=== PATIENT | female | born 1945 | race Caucasian/White ===

== ENCOUNTER 2017-08-09 09:46 | Inpatient (IN) ==
[2017-08-09] MEDS ORDERED: Dicyclomine 20 MG/2 ML AMPUL IM ONE (10:14)
[2017-08-09] MEDS ORDERED: 0.9 % Sodium Chloride 1,000 ML IVC ONE (10:14)
[2017-08-09] MEDS ORDERED: Ondansetron 4 MG/2 ML VIAL IVP ONE (10:14)
[2017-08-09] MEDS ORDERED: Isovue-370 500 ML INFUS..BTL IV ONE (10:15)
--- NOTE | 2017-08-09 10:21 | Emergency Department Note ---
Disposition Clinical Impression: Pancytopenia UTI (urinary tract infection) Qualifiers: Urinary tract infection type: site unspecified Hematuria presence: without hematuria Qualified Code(s): N39.0 - Urinary tract infection, site not specified Disposition: Home, Self-Care Condition: Good Referrals: Paris Johnson VOCATIONAL REHABILITATION TECHNICIAN [Primary Care Provider] - Forms: ED Satisfaction Letter, Work/School Release Time of Disposition: 13:34 Abdominal Pain HPI - General Chief Complaint: ED Abdominal Pain Stated Complaint: N/V/D, abd pain Time Seen by Provider: 08/09/17 09:58 Source: patient Limitations: no limitations Nursing Notes Reviewed: Yes Vital Signs Reviewed: Yes - History of Present Illness HPI Narrative: This is a 71 year-old male with history of HTN, HLD, DM, CHF, pacer/defib, and metastatic cervical cancer, who presents with abdominal pain, vomiting, and diarrhea. Symptoms began last Monday, the day after her last chemotherapy treatment. She reports diffuse, crampy abdominal pain, several episodes of nonbloody/nonbilious emesis/dry heaves, and watery diarrhea. She has had symptoms like this after previous chemo treatments but not this severe or long- lasting. Symptoms are worse when she attempts to eat or drink. She reports chills but no measured fevers. She denies any associated chest pain, dyspnea, or urinary symptoms. She says that she is scheduled for CT of the abdomen and pelvis tomorrow, to gauge response to chemotherapy. Pt Subjective Complaint: abdominal pain Onset (ago): day(s) (5) Consistency: intermittent Location: diffuse Pain Severity: moderate Pain Scale: 6 Quality: cramping Radiation: none Migration to: no migration Improves with: nothing Worsens with: eating, other (drinking) Context: history of similar episodes (similar to previous chemo effects, but more severe) Associated symptoms: Reports: nausea, vomiting, diarrhea, chills. Denies: fever , constipation, dysuria, hematemesis, hematochezia, melena Treatments prior to arrival: other (Zofran) - Related Data Home Medications Medication Instructions Recorded Confirmed Aspirin 81 mg PO DAILY 10/27/14 08/03/17 Furosemide [Lasix] 40 mg PO DAILY 10/27/14 08/03/17 Potassium Chloride 10 meq PO BIDWM 10/27/14 08/03/17 [place] Oil/[place]-3 Fatty Acids 1,000 mg PO DAILY 10/27/14 08/03/17 [Fish Oil 500 mg Softgel] Simvastatin [Zocor] 10 mg PO HS 10/12/15 08/03/17 Metoprolol XL (24 HR) Succ [Toprol 100 mg PO DAILY 06/27/16 08/03/17 XL] Losartan [Cozaar] 25 mg PO BID 04/24/17 08/03/17 Ibuprofen [Motrin] 400 mg PO Q4HR PRN 06/28/17 08/03/17 Previous Rx's Medication Instructions Recorded Incontinence Pad,Liner,Disp 1 each MC BID #90 each 01/09/17 [Bladder Control Pad] Gabapentin [Neurontin] 100 mg PO HS #30 capsule 02/28/17 Omeprazole 20 mg PO DAILY #90 tablet. 02/28/17 Loratadine [Claritin] 10 mg PO DAILY #30 capsule 04/10/17 Promethazine [Phenergan] 25 mg PO Q6HR PRN #30 tablet 06/01/17 Magic Mouthwash [Magic Mouthwash 10 ml PO QID PRN #240 ml 06/22/17 BLM] Sertraline [Zoloft] 50 mg PO DAILY #30 tablet 06/28/17 Dicyclomine [Bentyl] 10 mg PO TID PRN #30 capsule 08/03/17 Allergies Allergy/AdvReac Type Severity Reaction Status Date / Time Sulfa (Sulfonamide Allergy Swelling Verified 08/09/17 09:48 Antibiotics) of Lip/Tongue/Throat All systems ED: reviewed and negative except as stated. Constitutional: Reports: chills, weakness (generalized). Denies: fever Cardiovascular: Denies: chest pain Respiratory: Denies: cough, dyspnea Gastrointestinal: Reports: as per HPI, abdominal pain, nausea, vomiting, diarrhea. Denies: constipation, hematemesis, melena, hematochezia Genitourinary: Denies: urgency Musculoskeletal: Reports: myalgia Neurological: Reports: headache. Denies: weakness, numbness Abdominal Pain PMH - Past Medical History Medical history: Reports: arthritis, asthma, cancer, cardiomyopathy, CHF, COPD, diabetes, GERD, hyperlipidemia, hypertension, other Female Surgical History: Reports: cholecystectomy, hysterectomy JET PILOT history: Reports: no JET PILOT history Psychiatric history: Reports: anxiety, depression - Social History Smoking status: Current every day smoker Alcohol use: Reports: none Drug use: Reports: none, other Physical Exam - General Limitations: no limitations General appearance: alert - Head Head exam: atraumatic, normocephalic - Eye Eye exam: Present: normal appearance. Absent: scleral icterus - ENT ENT exam: normal exam, mucous membranes dry - Neck Neck exam: Present: normal inspection. Absent: meningismus - Respiratory Respiratory exam: Present: normal lung sounds bilaterally. Absent: respiratory distress, wheezes - Cardiovascular Cardiovascular exam: Present: regular rate, normal rhythm, normal heart sounds - Abdominal Exam Abdominal exam: Present: soft, Non-Tender, normal bowel sounds. Absent: distention, guarding, rebound, rigidity, Fortune's sign, tenderness at McBurney' s Point - Extremities Exam Extremities exam: Present: normal inspection. Absent: calf tenderness - Neurological Exam Neurological exam: Present: alert, oriented X3. Absent: motor sensory deficit - Psychiatric Psychiatric exam: Present: normal affect, normal mood - Skin Skin exam: Present: warm, dry, intact Course - Reevaluation(s) Reevaluation #1: Discussed test results and plans with patient/family. Time: 12:55 - Consultations Consultation #1: Paged oncology Time: 12:55 Consultation #2: Reviewed case with Lina Gilliam from Oncology. She is in agreement with admitting patient, and Oncology will consult. Time: 13:33 Consultation #3: Reviewed case with Dr. Sinha, and patient accepted for admission. Time: 13:47 Vital Signs Temperature 99.1 F 08/09/17 09:49 Pulse Rate 89 08/09/17 09:49 Respiratory Rate 20 08/09/17 09:49 Blood Pressure 148/75 08/09/17 09:49 O2 Sat by Pulse Oximetry 96 08/09/17 09:49 Temperature 99.1 F 08/09/17 10:57 Pulse Rate 89 08/09/17 10:57 Respiratory Rate 20 08/09/17 10:57 Blood Pressure 148/75 08/09/17 10:57 O2 Sat by Pulse Oximetry 96 08/09/17 10:57 Oxygen Delivery Oxygen Delivery Room Air Abdominal Pain - Lab Data Lab results reviewed: Yes I reviewed the patient's lab results. Result diagrams: 08/09/17 10:15 08/09/17 10:15 Lab Results 08/09/17 08/09/17 08/09/17 Range/Units 10:15 10:15 10:44 WBC 0.9 L* D (4.3-11.1) K/mcL RBC 2.46 L (3.82-4.97) M/mcL Hgb 8.6 L (11.5-15.4) g/dL Hct 26.3 L (35.3-44.9) % MCV 106.9 H (83.0-100.0) fL MCH 35.0 H (28.0-33.3) pg MCHC 32.7 (31.6-35.5) g/dL RDW 18.4 H (11.5-14.5) % Plt Count 39 L D (140-400) K/mcL MPV TNP Immature Gran % 0.0 (0-4) % Seg Neutrophils % 47.8 % Lymphocytes % 47.8 % Monocytes % 3.3 % Eosinophils % 0.0 % Basophils % 1.1 % Neutrophils # 0.4 L (1.6-8.9) K/mcL Lymphocytes # 0.4 L (0.6-4.6) K/mcL Monocytes # 0.0 (0.0-1.3) K/mcL Eosinophils # 0.0 (0.0-0.6) K/mcL Basophils # 0.0 (0.0-0.2) K/mcL Platelet Estimate Decreased L (Normal) Anisocytosis 1+ A (Not Present) Sodium 138 (136-145) mEq/L Potassium 4.6 (3.5-5.1) mEq/L Chloride 108 H (98-107) mEq/L Carbon Dioxide 23 (23-29) mEq/L BUN 33 H (8-23) mg/dL Creatinine 0.92 (0.60-1.20) mg/dL Est GFR ( Amer) > 60 (> 60) Est GFR (Non-Af Amer) > 60 (> 60) BUN/Creatinine Ratio 36 H (6-26) Glucose 168 H (70-105) mg/dL Calculated Osmolality 297 (280-300) Calcium 8.5 L (8.6-10.3) mg/dL Total Bilirubin 0.8 (0.3-1.0) mg/dL Direct Bilirubin 0.2 (0.0-0.2) mg/dL Indirect Bilirubin 0.6 (0.0-1.2) mg/dL AST 32 (13-39) Units/L ALT 37 (7-52) Units/L Alkaline Phosphatase 64 (34-104) Units/L Serum Total Protein 6.4 (6.4-8.9) g/dL Albumin 3.9 (3.5-5.7) g/dL Globulin 2.5 (2.4-3.5) g/dL Albumin/Globulin Ratio 1.6 (1.1-2.2) Amylase 37 (29-103) Units/L Lipase 5 L (11-82) Units/L Urine Color Yellow (Yellow) Urine Clarity Clear (Clear) Urine pH 5.5 (5.0-8.0) pH Units Ur Specific [place] 1.028 H (1.010-1.025) Urine Protein Negative (Neg-Trace) mg/dL Urine Glucose (UA) Normal (Normal) mg/dL Urine Ketones Negative (Negative) mg/dL Urine Blood Trace H (Negative) Urine Nitrite Positive A (Negative) Urine Bilirubin Negative (Negative) Urine Urobilinogen Normal (Normal) mg/dL Ur Leukocyte Esterase Moderate H (Negative) Urine Microscopic RBC 3-5 H (0-3) per hpf Urine Microscopic WBC 15-30 H (0-3) per hpf Ur Squamous Epith Cells Many H (None-Few) per lpf Urine Bacteria Moderate H (None-Few) per hpf Hyaline Casts None Seen (None-Few) per lpf Ur Culture Indicated? NO. A (NO) - Radiology Data Radiology results reviewed: Yes I reviewed the patient's radiology results. CT/CT abd pelvis w iv and oral IMPRESSION: No acute intra-abdominal or intrapelvic abnormality. The right iliac chain and periportal lymph adenopathy has decreased compared to prior. No new or enlarging lymphadenopathy identified. Persistent mild focal wall thickening of the peritoneal in the left lower quadrant near the iliac chain lymphadenopathy, similar in appearance.
[2017-08-09 11:13] LABS: Basophils % 1.1 %; Neutrophils # 0.4 K/mcL (1.6-8.9); Segmented Neutrophils % 47.8 %
[2017-08-09 11:14] LABS: Hematocrit 26.3 % (35.3-44.9); Hemoglobin 8.6 g/dL (11.5-15.4); Lymphocytes # 0.4 K/mcL (0.6-4.6); Lymphocytes % 47.8 %; Mean Corpuscular HGB Conc 32.7 g/dL (31.6-35.5); Mean Corpuscular Volume 106.9 fL (83.0-100.0); Monocytes % 3.3 %; Red Blood Count 2.46 M/mcL (3.82-4.97); Red Cell Distribution Width 18.4 % (11.5-14.5)
[2017-08-09 11:15] LABS: Bilirubin,Urine Negative (Negative); Blood,Urine Trace (Negative); Clarity,Urine Clear (Clear); Color,Urine Yellow (Yellow); Glucose,Urine (UA) Normal (Normal); Ketones,Urine Negative (Negative); Leukocyte Esterase,Urine Moderate (Negative); Nitrite,Urine Positive (Negative); PH,Urine 5.5 pH Units (5.0-8.0); Protein,Urine Negative (Neg-Trace); Specific Gravity,Urine 1.028 (1.010-1.025); Urobilinogen,Urine Normal (Normal)
[2017-08-09 11:17] LABS: Bacteria,Urine Moderate per hpf (None-Few); Hyaline Casts,Urine None Seen per lpf (None-Few); Squamous Epithelial Cell,Urine Many per lpf (None-Few); WBC,Urine 15-30 per hpf (0-3)
[2017-08-09 11:18] LABS: Platelet Count 39 K/mcL (140-400)
[2017-08-09] MEDS ORDERED: cefTRIAXone 2,000 MG in 0.9 % Sodium Chloride Mini Bag 100 ML IVPB ONE (11:33)
[2017-08-09] MEDS ORDERED: Piperacillin/Tazobactam 3.375 GM in 0.9 % Sodium Chloride Mini Bag 100 ML IVPB ONE (11:33)
[2017-08-09 11:34] LABS: Alanine Aminotransferase 37 Units/L (7-52); Albumin 3.9 g/dL (3.5-5.7); Albumin/Globulin Ratio 1.6 (1.1-2.2); Alkaline Phosphatase 64 Units/L (34-104); Amylase 37 Units/L (29-103); Anisocytosis 1+ (Not Present); Aspartate Amino Transferase 32 Units/L (13-39); BUN/Creatinine Ratio 36 (6-26); Bilirubin,Direct 0.2 mg/dL (0.0-0.2); Bilirubin,Indirect 0.6 mg/dL (0.0-1.2); Bilirubin,Total 0.8 mg/dL (0.3-1.0); Blood Urea Nitrogen 33 mg/dL (8-23); Calcium 8.5 mg/dL (8.6-10.3); Carbon Dioxide 23 mEq/L (23-29); Chloride 108 mEq/L (98-107); Globulin 2.5 g/dL (2.4-3.5); Glucose 168 mg/dL (70-105); Lipase 5 Units/L (11-82); Osmolality,Calculated 297 (280-300); Potassium 4.6 mEq/L (3.5-5.1); Sodium 138 mEq/L (136-145); Total Protein 6.4 g/dL (6.4-8.9); eGFR For African Americans > 60 (> 60); eGFR For Non-African Americans > 60 (> 60)
[2017-08-09 11:35] LABS: Platelet Estimate Decreased (Normal)
[2017-08-09] MEDS ORDERED: *HR* HYDROcodone/Acet 5/325 mg TABLET PO PRN (14:17)
[2017-08-09] MEDS ORDERED: Naloxone 0.4 MG/ML INJ IVP PRN (14:17)
[2017-08-09] MEDS ORDERED: D5% in Water 1,000 ML IVC PRN (14:17)
[2017-08-09] MEDS ORDERED: Acetaminophen 325 MG TABLET PO PRN (14:17)
[2017-08-09] MEDS ORDERED: Dextrose Gel 15 GM/37.5 ML TUBE PO PRN ×2 (14:17)
[2017-08-09] MEDS ORDERED: *HR* OxyCODONE Immed Rel 5 MG TABLET PO PRN (14:17)
[2017-08-09] MEDS ORDERED: *HR* Dextrose 50 % in Water (Syg) 50 ML SYRINGE IVP PRN (14:17)
--- NOTE | 2017-08-09 14:22 | Internal Med History&Physical ---
Date of Encounter: 08/09/17 Time of Encounter: 14:20 Internal Medicine - H&P: HPI Chief complaint: Abdominal pain Admitted From: Emergency Dept History of present illness: Ms. 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 Today, the patient's white blood cell count is 0.9 neutrophil count is 0.4, hemoglobin is close to baseline at 8.6 but platelets have dropped to 39. There is no evidence of bleeding, the UA shows possible UTI, CT scan of the abdomen shows diffuse lymphadenopathy. Oncology was consulted by the ER. The patient's blood pressure is 148/75, she says that she has been having cramps minimal dysuria, chills no fevers, feeling very weak and having abdominal pain after eating. Past Med Surg Social Fam HX - Past Medical History Medical history: arthritis, asthma, cancer (High-grade carcinoma of the fallopian tubes status post chemotherapy, ovarian cancer with gastric metastases ), cardiomyopathy, CHF (Diastolic), COPD (Not oxygen dependent), diabetes (Not insulin-dependent), GERD, hyperlipidemia, hypertension, other (Left bundle branch block, depression, diastolic dysfunction with an ejection fraction of 55% ) Additional medical history: smoker, Ca of the abd, pacemaker/defibrillator Psychiatric history: anxiety, depression - Past Surgical History Surgical History: cholecystectomy, hysterectomy, orthopedic, other, other ( Right salpingo-oophorectomy with omentectomy, surgical aspiration of sigmoid colon nodules, surgical repair of bladder, cholecystectomy, cardiac catheterization in November 2011, AICD), AICD Additional surgical history: marty feet-tumor removed; hemicolectomy - Social History Smoking Status: Current every day smoker Packs per day: Half a pack per day Smokeless Tobacco Status: No Alcohol use: none Drug use: none, other - Additional Family History Additional family history: Brother with diabetes, father and mother with heart disease Internal Medicine - H&P: Meds Aspirin 81 mg PO DAILY 10/27/14 [History] Simvastatin [Zocor] 10 mg PO HS 10/12/15 [History] Metoprolol XL (24 HR) Succ [Toprol XL] 100 mg PO DAILY 06/27/16 [History] Incontinence Pad,Liner,Disp [Bladder Control Pad] 1 each MC BID #90 each [Rx] Gabapentin [Neurontin] 100 mg PO HS #30 capsule 02/28/17 [Rx] Omeprazole 20 mg PO DAILY #90 tablet. 02/28/17 [Rx] Loratadine [Claritin] 10 mg PO DAILY #30 capsule 04/10/17 [Rx] Losartan [Cozaar] 25 mg PO BID 04/24/17 [History] Promethazine [Phenergan] 25 mg PO Q6HR PRN #30 tablet 06/01/17 [Rx] Magic Mouthwash [Magic Mouthwash BLM] 10 ml PO QID PRN #240 ml 06/22/17 [Rx] Ibuprofen [Motrin] 400 mg PO Q4HR PRN 06/28/17 [History] Sertraline [Zoloft] 50 mg PO DAILY #30 tablet 06/28/17 [Rx] Dicyclomine [Bentyl] 10 mg PO TID PRN #30 capsule 08/03/17 [Rx] Furosemide [Lasix] 40 mg PO DAILY 08/09/17 [History] Multivitamin [One Daily Multivitamin] 1 tab PO DAILY 08/09/17 [History] [place]-3/Dha/Epa/Fish Oil [Fish Oil 1,000 mg Softgel] 1,000 mg PO DAILY 08/09/17 [History] Potassium Chloride [Klor-Con 10] 10 meq PO BID 08/09/17 [History] 3 Allergy/AdvReac Type Severity Reaction Status Date / Time Sulfa (Sulfonamide Allergy Swelling Verified 08/09/17 09:48 Antibiotics) of Lip/Tongue/Throat All Systems PM: A 10-system review of systems was performed and is negative for pertinent findings except as documented above in the HPI. Review of systems: No chest pain or shortness of breath, other systems out of the 10 reviewed were negative - Constitutional Vitals: Temp Pulse Resp BP Pulse Ox 99.1 F 89 20 148/75 96 08/09/17 10:57 08/09/17 10:57 08/09/17 10:57 08/09/17 10:57 08/09/17 10:57 General appearance: Present: A&O X 3 - Head Head exam: Present: atraumatic, normocephalic - Eye Eye exam: Present: PERRL, conjuntiva pink, sclera anicteric Pupils: Present: PERRL - Neck Neck exam general surgery: Present: supple, trachea midline. Absent: lymphadenopathy - Respiratory Respiratory exam: Present: CTAB. Absent: accessory muscle use, rales, rhonchi, wheezes - Cardiovascular Cardiovascular exam: Present: RRR, +S1, +S2. Absent: diastolic murmur, gallop, rubs, systolic murmur - GI/Abdominal GI/Abdominal exam: Present: distended, normal bowel sounds, soft, no peritoneal signs. Absent: tenderness - Extremities Exam Extremities exam: Present: warm, radial pulses palpable and symmetrical. Absent : calf tenderness, cyanotic, pedal edema - Neurological Exam Neurological exam: Present: CN II-XII intact, oriented X3, no focal deficits. Absent: pronater drift, facial droop, speech deficit Additional comments: Minimal bruising in the intervertebral spaces of the lumbar area - Skin Skin exam: Present: dry, intact Internal Med - H&P Results - Labs CBC & Chem 7: 08/09/17 10:15 08/09/17 10:15 Labs: Short CBC 08/09/17 Range/Units 10:15 WBC 0.9 L* D (4.3-11.1) K/mcL Hgb 8.6 L (11.5-15.4) g/dL Hct 26.3 L (35.3-44.9) % Plt Count 39 L D (140-400) K/mcL Neutrophils # 0.4 L (1.6-8.9) K/mcL BMP 08/09/17 10:15 Sodium 138 Potassium 4.6 Chloride 108 H Carbon Dioxide 23 BUN 33 H Creatinine 0.92 Glucose 168 H Calcium 8.5 L Liver Function 08/09/17 Range/Units 10:15 Total Bilirubin 0.8 (0.3-1.0) mg/dL Direct Bilirubin 0.2 (0.0-0.2) mg/dL AST 32 (13-39) Units/L ALT 37 (7-52) Units/L Alkaline Phosphatase 64 (34-104) Units/L Albumin 3.9 (3.5-5.7) g/dL Urine 08/09/17 Range/Units 10:44 Urine Color Yellow (Yellow) Urine Clarity Clear (Clear) Urine pH 5.5 (5.0-8.0) pH Units Ur Specific [place] 1.028 H (1.010-1.025) Urine Protein Negative (Neg-Trace) mg/dL Urine Glucose (UA) Normal (Normal) mg/dL - Impressions ITS Impressions Abdomen/Pelvis CT 08/09/17 12:00 IMPRESSION: No acute intra-abdominal or intrapelvic abnormality. The right iliac chain and periportal lymph adenopathy has decreased compared to prior. No new or enlarging lymphadenopathy identified. Persistent mild focal wall thickening of the peritoneal in the left lower quadrant near the iliac chain lymphadenopathy, similar in appearance. D/ / Eloina Rondon MD / Eloina Rondon MD Interpreting Provider: Eloina Rondon MD - Assessment and plan (1) Neutropenic fever Current Visit: Yes Status: Acute Assessment and plan: Neutropenic fever with severe neutropenia, pancytopenia likely related to chemotherapy Neutropenic precautions, neutropenic fever, minimize punctures IV fluids, start cefepime Aspirin due to thrombus cytopenia Order x-ray of the lumbar and thoracic spines due to pain Chest x-ray, blood cultures Oncology consulted by ER Omeprazole for GI prophylaxes and sequential compression devices for DVT prophylaxis, the patient will be admitted as inpatient, expected to stay more than 2 midnights. Full code. Time spent on this admission 40 minutes (2) Carcinoma of right fallopian tube Current Visit: Yes Status: Acute Assessment and plan: Followed by oncology, gastric metastases (3) Tobacco abuse Current Visit: Yes Status: Acute Assessment and plan: Smoking cessation counseling (4) Pancytopenia Current Visit: Yes Status: Acute (5) UTI (urinary tract infection) Current Visit: Yes Status: Acute Assessment and plan: Urine culture ordered, spoke personally to the microbiology laboratory as it was not reflexed to culture Qualifiers: Urinary tract infection type: site unspecified Hematuria presence: without hematuria Qualified Code(s): N39.0 - Urinary tract infection, site not specified (6) Chemotherapy-induced peripheral neuropathy Current Visit: No Status: Acute (7) CHF (congestive heart failure), NYHA class III Current Visit: No Status: Chronic Assessment and plan: No exacerbation Qualifiers: Congestive heart failure type: diastolic Congestive heart failure chronicity: chronic Qualified Code(s): I50.32 - Chronic diastolic (congestive ) heart failure - Time Spent With Patient Total time spent is greater than 50% in coordination of care (as documented) at patient's floor/unit and/or counseling patient:
[2017-08-09] MEDS ORDERED: Cefepime HCl 2,000 MG in Water for inj. (sterile) 20 ML 20 ML IVP SCH (15:00)
[2017-08-09] MEDS: Nicotine 14 MG PATCH.TD24 TD SCH (16:16)
[2017-08-09] MEDS: 0.9 % Sodium Chloride 1,000 ML IVC SCH (16:17)
[2017-08-09] MEDS: Cefepime HCl 2,000 MG in Water for inj. (sterile) 20 ML 20 ML IVP SCH (16:19)
[2017-08-09] MEDS: Insulin LISPRO 300 UNITS/3 ML VIAL SQ SCH (16:26)
[2017-08-09] MEDS: Gabapentin 100 MG CAPSULE PO SCH (20:04)
[2017-08-10] MEDS: Cefepime HCl 2,000 MG in Water for inj. (sterile) 20 ML 20 ML IVP SCH (03:45)
[2017-08-10 05:33] LABS: Immature Granulocytes % 0.7 % (0-4)
[2017-08-10 05:34] LABS: Hematocrit 21.2 % (35.3-44.9); Hemoglobin 6.9 g/dL (11.5-15.4); Lymphocytes % 68.5 %; Mean Corpuscular HGB Conc 32.5 g/dL (31.6-35.5); Mean Corpuscular Hemoglobin 34.7 pg (28.0-33.3); Mean Corpuscular Volume 106.5 fL (83.0-100.0); Mean Platelet Volume 9.7 fL (9.4-12.4); Monocytes # 0.1 K/mcL (0.0-1.3); Monocytes % 3.4 %; Neutrophils # 0.4 K/mcL (1.6-8.9); Nucleated Red Blood Cells 2.7 /100 WBC (0); Red Blood Count 1.99 M/mcL (3.82-4.97); Red Cell Distribution Width 18.4 % (11.5-14.5); Segmented Neutrophils % 27.4 %
[2017-08-10 05:41] LABS: Platelet Count 17 K/mcL (140-400)
[2017-08-10 05:50] LABS: BUN/Creatinine Ratio 28 (6-26); Blood Urea Nitrogen 22 mg/dL (8-23); Calcium 7.3 mg/dL (8.6-10.3); Carbon Dioxide 23 mEq/L (23-29); Chloride 113 mEq/L (98-107); Glucose 157 mg/dL (70-105); Osmolality,Calculated 297 (280-300); Sodium 140 mEq/L (136-145); eGFR For African Americans > 60 (> 60); eGFR For Non-African Americans > 60 (> 60)
[2017-08-10 06:07] LABS: Anisocytosis 1+ (Not Present); Macrocytosis Present (Not Present)
[2017-08-10 06:08] LABS: Platelet Estimate Marked Decrease (Normal)
[2017-08-10] MEDS: 0.9 % Sodium Chloride 1,000 ML IVC SCH ×2 (07:20→21:15)
[2017-08-10] MEDS: Metoprolol XL (24 HR) Succ 50 MG TAB.ER.24H PO SCH (08:57)
[2017-08-10] MEDS: Insulin LISPRO 300 UNITS/3 ML VIAL SQ SCH ×3 (08:58→17:26)
[2017-08-10] MEDS: Nicotine 14 MG PATCH.TD24 TD SCH (08:59)
[2017-08-10] MEDS ORDERED: Isovue-370 500 ML INFUS..BTL IV ONE (16:05)
--- NOTE | 2017-08-10 16:10 | Internal Med Progress Note ---
Date of Encounter: 08/10/17 Time of Encounter: 11:30 - Assessment and plan (1) Neutropenic fever Current Visit: Yes Status: Acute Assessment and plan: Neutropenic fever with severe neutropenia, pancytopenia likely related to chemotherapy Neutropenic precautions, neutropenic fever, minimize punctures IV fluids, start cefepime Aspirin due to thrombus cytopenia Order x-ray of the lumbar and thoracic spines due to pain Chest x-ray, blood cultures Oncology consulted by ER 08/10: Patient is doing well clinically. Urinalysis is suggestive of urinary tract infection although it may also have been contaminated given multiple epithelial cells. There were 15-30 white blood cells in the urine. Urine cultures growing out gram-negative rods. Cultures are negative to date Patient is day #1 IV cefepime. Patient remains hemodynamically stable. We will continue to monitor. ANC today is 405. Pathology will be seeing. (2) Pancytopenia Current Visit: Yes Status: Acute Assessment and plan: She has chemotherapy associated pancytopenia. Family states she has had Neulasta in the past but did not tolerate, and made her sick. Patient's hemoglobin is 6.9. I will offer one unit of packed red blood cells. White count is 17. She is not showing any signs of bleeding. We will need to closely monitor and consider platelet support as well. Further management as per oncology recommendations. (3) CHF (congestive heart failure), NYHA class III Current Visit: No Status: Chronic Assessment and plan: No exacerbation Echocardiogram in January 2016 showed an EF of 55%, essentially a normal study with the exception of some mild ventricular diastolic dysfunction. (4) Chemotherapy-induced peripheral neuropathy Current Visit: No Status: Acute (5) UTI (urinary tract infection) Current Visit: Yes Status: Acute Assessment and plan: Urine culture ordered, spoke personally to the microbiology laboratory as it was not reflexed to culture 08/10: As mentioned above. Qualifiers: Urinary tract infection type: site unspecified Hematuria presence: without hematuria Qualified Code(s): N39.0 - Urinary tract infection, site not specified (6) Carcinoma of right fallopian tube Current Visit: Yes Status: Acute Assessment and plan: Followed by oncology, gastric metastases (7) Tobacco abuse Current Visit: Yes Status: Acute Assessment and plan: Smoking cessation counseling - Time Spent With Patient Total time spent is greater than 50% in coordination of care (as documented) at patient's floor/unit and/or counseling patient: 25 - 35 minutes - Subjective Interval history: Ms. 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 Today, the patient's white blood cell count is 0.9 neutrophil count is 0.4, hemoglobin is close to baseline at 8.6 but platelets have dropped to 39. There is no evidence of bleeding, the UA shows possible UTI, CT scan of the abdomen shows diffuse lymphadenopathy. Oncology was consulted by the ER. The patient's blood pressure is 148/75, she says that she has been having cramps minimal dysuria, chills no fevers, feeling very weak and having abdominal pain after eating. 08/10: Patient states she feels well today. Her last chemotherapy was 7 days ago. This is her second cycle of this regimen. He currently denies any further fever. No abdominal pain. No nausea, vomiting, diarrhea. No chest pain or shortness of breath. No urinary complaints. Cancer Center notified us that she is to have a CT of her chest as well so we took the liberty of ordering this. Patient remains pancytopenic. Hemoglobin is 6.9. A transfusion will be ordered. The count is 17,000. Oncology has been consulted. - Constitutional Vitals: Temp Pulse Resp BP Pulse Ox 98.0 F 71 16 125/71 95 08/10/17 15:28 08/10/17 15:28 08/10/17 15:28 08/10/17 15:28 08/10/17 15:28 General appearance: Present: A&O X 3 - Head Head exam: Present: atraumatic, normocephalic - Eye Eye exam: Present: PERRL, conjuntiva pink, sclera anicteric Pupils: Present: PERRL - Neck Neck exam general surgery: Present: supple, trachea midline. Absent: lymphadenopathy - Respiratory Respiratory exam: Present: CTAB. Absent: accessory muscle use, rales, rhonchi, wheezes - Cardiovascular Cardiovascular exam: Present: RRR, +S1, +S2. Absent: diastolic murmur, gallop, rubs, systolic murmur - GI/Abdominal GI/Abdominal exam: Present: normal bowel sounds, soft, no peritoneal signs. Absent: distended, tenderness - Extremities Exam Extremities exam: Present: warm, radial pulses palpable and symmetrical. Absent : calf tenderness, cyanotic, pedal edema - Neurological Exam Neurological exam: Present: CN II-XII intact, oriented X3, no focal deficits. Absent: pronater drift, facial droop, speech deficit - Skin Skin exam: Present: dry, intact Internal Medicine: Result - Labs CBC & Chem 7: 08/10/17 05:10 08/10/17 05:10 Labs: Short CBC 08/10/17 Range/Units 05:10 WBC 1.5 L D (4.3-11.1) K/mcL Hgb 6.9 L D (11.5-15.4) g/dL Hct 21.2 L (35.3-44.9) % Plt Count 17 L* D (140-400) K/mcL Neutrophils # 0.4 L (1.6-8.9) K/mcL BMP 08/10/17 05:10 Sodium 140 Potassium 4.0 Chloride 113 H Carbon Dioxide 23 BUN 22 Creatinine 0.78 Glucose 157 H Calcium 7.3 L Consult Discharge Plan - Plan Referrals: Paris Johnson CNP [Primary Care Provider] - 08/18/17 9:00 am
--- NOTE | 2017-08-10 17:19 | Oncology Inp Consult Note ---
<Lina Gilliam L - Last Filed: 08/15/17 14:43> Date of Encounter: 08/10/17 Time of Encounter: 14:30 Assessment and Plan (1) Pancytopenia Status: Acute Assessment and plan: Secondary to chemotherapy. Neutropenia with TMAX 99.1 since admission, patient denies temp >100.4 prior to admission. Neutropenic precautions until ANC >500 Treat supportively, transfuse for hgb <7 or platelets <10 (2) UTI (urinary tract infection) Status: Acute Assessment and plan: Urine analysis appeared contaminated however culture grew E. Coli Continue cefepime- culture shows sensitivity Presented with abdominal pain, nausea and vomiting which have since resolved. Patient reports relief with Bentyl- continue supportive medications Discussed use of supportive medications with chemotherapy regimen as outpatient. Qualifiers: Urinary tract infection type: site unspecified Hematuria presence: without hematuria Qualified Code(s): N39.0 - Urinary tract infection, site not specified (3) Carcinoma of right fallopian tube Status: Acute Assessment and plan: Palliative carboplatin, gemcitabine and bevacizumab initiated 06/01/2017. S/P cycle #3 day 8 of chemotherapy on 08/03. Due for restaging scans-CT chest/abdomen/pelvis obtained. CT chest-Bilateral lower lobe juxtapleural consolidation with appearance of scarring/ round atelectasis at. Given these are new findings since prior study, pneumonia cannot be completely excluded. Short-term follow-up CT is recommended to confirm stability. CT abdomen/pelvis-No acute intra-abdominal or intrapelvic abnormality. The right iliac chain and periportal lymph adenopathy has decreased compared to prior. No new or enlarging lymphadenopathy identified. Persistent mild focal wall thickening of the peritoneal in the left lowe quadrant near the iliac chain lymphadenopathy, similar in appearance. Will arrange for follow up with treating oncologist Dr. Weaver following discharge. Please refer to Dr. Barnett's attestation below for additional details - Data of Consult Patient: known to practice within the last 3 years Consult date: 08/10/17 Requesting Physician: Kyra Ramon MD Primary Care Provider: Paris Johnson CNP - Consult Narrative Reason for consult: Right ovarian carcinoma History of present illness: Ms. 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 Adjuvant Carboplatin/Docetaxel x 4 cycles, BRCA negative and Grade 2 peripheral neuropathy. Current therapy includes Gemcitabine/Carboplatin/Avastin initiated 06/01/17, last treatment received 08/03. Palliative intent. She presented to the ER on 08/10/2017 with report of abdominal pain, nausea, vomiting and diarrhea. She was pancytopenic with potential UTI. Past Med Surg Social Fam HX - Past Medical History Medical history: arthritis, asthma, cancer, cardiomyopathy, CHF, COPD, diabetes , GERD, hyperlipidemia, hypertension, other Additional medical history: smoker, Ca of the abd, pacemaker/defibrillator Psychiatric history: anxiety, depression - Past Surgical History Surgical History: cholecystectomy, hysterectomy, orthopedic, other, other, AICD Additional surgical history: marty feet-tumor removed; hemicolectomy - Social History Smoking Status: Current every day smoker Packs per day: Half a pack per day Smokeless Tobacco Status: No Alcohol use: none Drug use: none, other Medications and Allergies Aspirin 81 mg PO DAILY 10/27/14 [History] Simvastatin [Zocor] 10 mg PO HS 10/12/15 [History] Metoprolol XL (24 HR) Succ [Toprol Xl] 100 mg PO DAILY 06/27/16 [History] Incontinence Pad,Liner,Disp [Bladder Control Pad] 1 each MC BID #90 each [Rx] Gabapentin [Neurontin] 100 mg PO HS #30 capsule 02/28/17 [Rx] Omeprazole 20 mg PO DAILY #90 tablet. 02/28/17 [Rx] Loratadine [Claritin] 10 mg PO DAILY #30 capsule 04/10/17 [Rx] Losartan [Cozaar] 25 mg PO BID 04/24/17 [History] Promethazine [Phenergan] 25 mg PO Q6HR PRN #30 tablet 06/01/17 [Rx] Magic Mouthwash [Magic Mouthwash BLM] 10 ml PO QID PRN #240 ml 06/22/17 [Rx] Ibuprofen [Motrin] 400 mg PO Q4HR PRN 06/28/17 [History] Sertraline [Zoloft] 50 mg PO DAILY #30 tablet 06/28/17 [Rx] Dicyclomine [Bentyl] 10 mg PO TID PRN #30 capsule 08/03/17 [Rx] Furosemide [Lasix] 40 mg PO DAILY 08/09/17 [History] Multivitamin [One Daily Multivitamin] 1 tab PO DAILY 08/09/17 [History] [place]-3/Dha/Epa/Fish Oil [Fish Oil 1,000 mg Softgel] 1,000 mg PO DAILY 08/09/17 [History] Potassium Chloride [Klor-Con 10] 10 meq PO BID 08/09/17 [History] 3 Allergy/AdvReac Type Severity Reaction Status Date / Time Sulfa (Sulfonamide Allergy Swelling Verified 08/16/17 09:27 Antibiotics) of Lip/Tongue/Throat Constitutional: Present: anorexia, fatigue, weakness. Absent: chills, fever(s) Eyes: Absent: change in vision Nose, mouth and throat: Absent: dysphagia Cardiovascular: Absent: chest pain Gastrointestinal: Present: as per HPI, abdominal pain, diarrhea, nausea, vomiting Genitourinary: Absent: dysuria, hematuria Musculoskeletal: Present: muscle weakness Integumentary: Absent: wounds Neurological: Absent: focal weakness, frequent falls Psychiatric: Present: as per HPI Hematologic/Lymphatic: Present: as per HPI Oncology - Exam - Constitutional Vitals: Temp Pulse Resp BP Pulse Ox 98.0 F 71 16 125/71 95 08/10/17 15:28 08/10/17 15:28 08/10/17 15:28 08/10/17 15:28 08/10/17 15:28 General appearance: cooperative, no acute distress, no febrile - Head Head exam: Present: atraumatic - ENT ENT exam: Present: mucous membranes moist - Cardiovascular Cardiovascular exam: Present: RRR, +S1, +S2 - GI/Abdominal GI/Abdominal exam: Present: normal bowel sounds, soft. Absent: guarding, rebound, tenderness - Extremities Exam Extremities exam: Present: normal inspection. Absent: calf tenderness - Neurological Exam Neurological exam: Present: alert, oriented X3, no focal deficits, strengths equal and symetr throughout - Psychiatric Psychiatric exam: Present: normal affect, normal mood - Skin Skin exam: Present: dry, intact, normal color, warm Oncology - Results Labs: 3 08/10/17 08/10/17 08/10/17 16:46 16:28 11:00 WBC RBC Hgb Hct MCV MCH MCHC RDW Plt Count MPV Immature Gran % Seg Neutrophils % Lymphocytes % Monocytes % Eosinophils % Basophils % Neutrophils # Lymphocytes # Monocytes # Eosinophils # Basophils # Nucleated RBCs/100 WBC Platelet Estimate Anisocytosis Macrocytosis Sodium Potassium Chloride Carbon Dioxide BUN Creatinine Est GFR ( Amer) Est GFR (Non-Af Amer) BUN/Creatinine Ratio Glucose POC Glucose 160 H 157 H Calculated Osmolality Calcium Blood Type O POSITIVE 3 08/10/17 08/10/17 08/10/17 08:21 05:10 05:10 WBC 1.5 L D RBC 1.99 L Hgb 6.9 L D Hct 21.2 L MCV 106.5 H MCH 34.7 H MCHC 32.5 RDW 18.4 H Plt Count 17 L* D MPV 9.7 Immature Gran % 0.7 Seg Neutrophils % 27.4 Lymphocytes % 68.5 Monocytes % 3.4 Eosinophils % 0.0 Basophils % 0.0 Neutrophils # 0.4 L Lymphocytes # 1.0 Monocytes # 0.1 Eosinophils # 0.0 Basophils # 0.0 Nucleated RBCs/100 WBC 2.7 H Platelet Estimate Marked Decrease L Anisocytosis 1+ A Macrocytosis Present A Sodium 140 Potassium 4.0 Chloride 113 H Carbon Dioxide 23 BUN 22 Creatinine 0.78 Est GFR ( Amer) > 60 Est GFR (Non-Af Amer) > 60 BUN/Creatinine Ratio 28 H Glucose 157 H POC Glucose 145 H Calculated Osmolality 297 Calcium 7.3 L Blood Type 3 08/09/17 08/09/17 19:37 16:09 WBC RBC Hgb Hct MCV MCH MCHC RDW Plt Count MPV Immature Gran % Seg Neutrophils % Lymphocytes % Monocytes % Eosinophils % Basophils % Neutrophils # Lymphocytes # Monocytes # Eosinophils # Basophils # Nucleated RBCs/100 WBC Platelet Estimate Anisocytosis Macrocytosis Sodium Potassium Chloride Carbon Dioxide BUN Creatinine Est GFR ( Amer) Est GFR (Non-Af Amer) BUN/Creatinine Ratio Glucose POC Glucose 177 H 146 H Calculated Osmolality Calcium Blood Type Consult Discharge Plan - Plan Instructions: Urinary Tract Infection in Women (DC) Additional Instructions: drink at least 2 Liters of fluid daily Referrals: Paris Johnson CNP [Primary Care Provider] - 08/18/17 9:00 am <Randall Barnett - Last Filed: 08/21/17 08:54> Date of Encounter: 08/11/17 - Data of Consult Requesting Physician: Kyra Ramon MD Primary Care Provider: Paris Johnson CNP - Consult Narrative History of present illness: Ms. Juan is a 71 year old female Oncology - Exam - Constitutional Vitals: Temp Pulse Resp BP Pulse Ox 98.4 F 68 15 139/62 93 08/11/17 10:27 08/11/17 10:27 08/11/17 10:27 08/11/17 10:27 08/11/17 10:27 - Attending Attestation Seen and examined patient and agree with assessment and plan. Patient with acute GI symptoms likely 2/2 chemotherapy. UTI may be complicating factor. Pancytopenia already improving and is 2/2 chemotherapy. PLan for outpatient abx, transfusion support as needed, and f/u with primary onc , Dr. Weaver.
[2017-08-10] MEDS ORDERED: 0.9 % Sodium Chloride 250 ML ONE (18:35)
[2017-08-10] MEDS: Gabapentin 100 MG CAPSULE PO SCH (21:14)
[2017-08-11] MEDS ORDERED: Cefepime HCl 2,000 MG in Water for inj. (sterile) 20 ML 20 ML IVP SCH (00:04)
[2017-08-11 08:38] LABS: Eosinophils % 1.1 %; Hematocrit 24.7 % (35.3-44.9); Hemoglobin 8.3 g/dL (11.5-15.4); Immature Granulocytes % 2.2 % (0-4); Lymphocytes # 1.1 K/mcL (0.6-4.6); Lymphocytes % 37.8 %; Mean Corpuscular HGB Conc 33.6 g/dL (31.6-35.5); Mean Corpuscular Hemoglobin 34.7 pg (28.0-33.3); Mean Corpuscular Volume 103.3 fL (83.0-100.0); Mean Platelet Volume 12.5 fL (9.4-12.4); Monocytes # 0.2 K/mcL (0.0-1.3); Monocytes % 6.1 %; Neutrophils # 1.5 K/mcL (1.6-8.9); Nucleated Red Blood Cells 1.4 /100 WBC (0); Red Blood Count 2.39 M/mcL (3.82-4.97); Red Cell Distribution Width 18.6 % (11.5-14.5); Segmented Neutrophils % 52.8 %
[2017-08-11 08:40] LABS: Platelet Count 21 K/mcL (140-400)
[2017-08-11 08:54] LABS: Alanine Aminotransferase 46 Units/L (7-52); Albumin 3.3 g/dL (3.5-5.7); Albumin/Globulin Ratio 1.6 (1.1-2.2); Alkaline Phosphatase 55 Units/L (34-104); Aspartate Amino Transferase 42 Units/L (13-39); BUN/Creatinine Ratio 21 (6-26); Bilirubin,Total 0.5 mg/dL (0.3-1.0); Blood Urea Nitrogen 15 mg/dL (8-23); Calcium 7.7 mg/dL (8.6-10.3); Carbon Dioxide 22 mEq/L (23-29); Chloride 114 mEq/L (98-107); Globulin 2.1 g/dL (2.4-3.5); Glucose 113 mg/dL (70-105); Osmolality,Calculated 294 (280-300); Sodium 141 mEq/L (136-145); Total Protein 5.4 g/dL (6.4-8.9); eGFR For African Americans > 60 (> 60); eGFR For Non-African Americans > 60 (> 60)
[2017-08-11 08:59] LABS: Macrocytosis Present (Not Present); Platelet Estimate Marked Decrease (Normal)
[2017-08-11] MEDS: Metoprolol XL (24 HR) Succ 50 MG TAB.ER.24H PO SCH (09:07)
[2017-08-11] MEDS: Insulin LISPRO 300 UNITS/3 ML VIAL SQ SCH ×2 (09:07→12:05)
[2017-08-11] MEDS: Nicotine 14 MG PATCH.TD24 TD SCH (09:08)
[2017-08-11 10:33] VITALS: BP 139/62
--- NOTE | 2017-08-11 11:17 | Discharge Summary ---
Date of Encounter: 08/11/17 Time of Encounter: 09:00 - Discharge Diagnosis (1) Neutropenic fever Priority: Primary Status: Acute (2) Pancytopenia Priority: Secondary Status: Acute (3) CHF (congestive heart failure), NYHA class III Priority: Secondary Status: Chronic (4) Chemotherapy-induced peripheral neuropathy Priority: Secondary Status: Acute (5) UTI (urinary tract infection) Priority: Primary Status: Acute Qualifiers: Urinary tract infection type: site unspecified Hematuria presence: without hematuria Qualified Code(s): N39.0 - Urinary tract infection, site not specified (6) Carcinoma of right fallopian tube Priority: Secondary Status: Acute (7) Tobacco abuse Priority: Secondary Status: Acute Hospital course: Ms. 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 Today, the patient's white blood cell count is 0.9 neutrophil count is 0.4, hemoglobin is close to baseline at 8.6 but platelets have dropped to 39. There is no evidence of bleeding, the UA shows possible UTI, CT scan of the abdomen shows diffuse lymphadenopathy. Oncology was consulted by the ER. The patient's blood pressure is 148/75, she says that she has been having cramps minimal dysuria, chills no fevers, feeling very weak and having abdominal pain after eating. 08/10: Patient states she feels well today. Her last chemotherapy was 7 days ago. This is her second cycle of this regimen. He currently denies any further fever. No abdominal pain. No nausea, vomiting, diarrhea. No chest pain or shortness of breath. No urinary complaints. Cancer Center notified us that she is to have a CT of her chest as well so we took the liberty of ordering this. Patient remains pancytopenic. Hemoglobin is 6.9. A transfusion will be ordered. The count is 17,000. Oncology has been consulted. 08/11: Patient did well. She received 1 unit of packed red blood cells, day of discharge her hemoglobin was 8.3. Her pancytopenia was resolving with her white count increasing to an admission level of 0.9, to 2.8 on day of discharge. Platelets were 21,000. Patient was started on cefepime for which she was day #2 for neutropenic fever. Ultimately she was diagnosed with a urinary tract infection with urine cultures growing out pansensitive Escherichia coli. Blood cultures were negative 2. On day of discharge patient was feeling well without any complaints whatsoever. She was deemed stable for discharge. I discussed the case with Dr. Toro in oncology who is in agreement. She was changed to Keflex 250 mg by mouth 4 times a day to complete a seven-day course of effective antibiotics. She is currently day #3 of antibiotics. Discharge discussed with: patient - Time Spent with Patient Total time spent providing and/or coordinating discharge services: Greater than 30 minutes (33 minutes) - Discharge Medications Home Medications: Aspirin 81 mg PO DAILY 10/27/14 [History] Simvastatin [Zocor] 10 mg PO HS 10/12/15 [History] Metoprolol XL (24 HR) Succ [Toprol XL] 100 mg PO DAILY 06/27/16 [History] Incontinence Pad,Liner,Disp [Bladder Control Pad] 1 each MC BID #90 each [Rx] Gabapentin [Neurontin] 100 mg PO HS #30 capsule 02/28/17 [Rx] Omeprazole 20 mg PO DAILY #90 tablet. 02/28/17 [Rx] Loratadine [Claritin] 10 mg PO DAILY #30 capsule 04/10/17 [Rx] Losartan [Cozaar] 25 mg PO BID 04/24/17 [History] Promethazine [Phenergan] 25 mg PO Q6HR PRN #30 tablet 06/01/17 [Rx] Magic Mouthwash [Magic Mouthwash BLM] 10 ml PO QID PRN #240 ml 06/22/17 [Rx] Ibuprofen [Motrin] 400 mg PO Q4HR PRN 06/28/17 [History] Sertraline [Zoloft] 50 mg PO DAILY #30 tablet 06/28/17 [Rx] Dicyclomine [Bentyl] 10 mg PO TID PRN #30 capsule 08/03/17 [Rx] Furosemide [Lasix] 40 mg PO DAILY 08/09/17 [History] Multivitamin [One Daily Multivitamin] 1 tab PO DAILY 08/09/17 [History] [place]-3/Dha/Epa/Fish Oil [Fish Oil 1,000 mg Softgel] 1,000 mg PO DAILY 08/09/17 [History] Potassium Chloride [Klor-Con 10] 10 meq PO BID 08/09/17 [History] Allergies/Adverse Reactions: 3 Allergy/AdvReac Type Severity Reaction Status Date / Time Sulfa (Sulfonamide Allergy Swelling Verified 08/09/17 09:48 Antibiotics) of Lip/Tongue/Throat Date of admission: 08/09/17 14:40 Primary care physician: Paris Johnson CNP Consults: 08/10/17 15:56 Consult to Invasive Line Access Team [CONS] Routine Reason for Consult: limited vascular access Line Type: EPIV Discharging clinician: Garrett Weeks Anticipated date of discharge: 08/11/17 - Constitutional Vitals: Temp Pulse Resp BP Pulse Ox 98.4 F 68 15 139/62 93 08/11/17 10:27 08/11/17 10:27 08/11/17 10:27 08/11/17 10:27 08/11/17 10:27 General appearance: Present: A&O X 3 - Head Head exam: Present: atraumatic, normocephalic - Eye Eye exam: Present: PERRL, conjuntiva pink, sclera anicteric Pupils: Present: PERRL - Neck Neck exam general surgery: Present: supple, trachea midline. Absent: lymphadenopathy - Respiratory Respiratory exam: Present: CTAB. Absent: accessory muscle use, rales, rhonchi, wheezes - Cardiovascular Cardiovascular exam: Present: RRR, +S1, +S2. Absent: diastolic murmur, gallop, rubs, systolic murmur - GI/Abdominal GI/Abdominal exam: Present: normal bowel sounds, soft, no peritoneal signs. Absent: distended, tenderness - Extremities Exam Extremities exam: Present: warm, radial pulses palpable and symmetrical. Absent : calf tenderness, cyanotic, pedal edema - Neurological Exam Neurological exam: Present: CN II-XII intact, oriented X3, no focal deficits. Absent: pronater drift, facial droop, speech deficit - Skin Skin exam: Present: dry, intact - Patient Status Disposition: Home, Self-Care Condition: Good Functional capacity at discharge: independent ambulation Overall status at discharge: patient is back to baseline - Discharge Instructions Instructions: Urinary Tract Infection in Women (DC) Follow Up With: Paris Johnson CNP [Primary Care Provider] - 08/18/17 9:00 am Additional Instructions: drink at least 2 Liters of fluid daily - Diet and Activity Activity: resume usual activities as tolerated Diet: advance to your usual diet
[2017-08-11] MEDS ORDERED: levoFLOXacin 750 MG TABLET PO SCH (11:30)
[2017-08-11] MEDS ORDERED: cephALEXin 250 MG CAPSULE PO SCH (13:00)
== END 2017-08-11 12:30 | disposition home health service (06) | DRG 808 ==
LOC: EMEROO 09:46 → 3ANU 14:40
PROVIDERS: ADMIT Internal Medicine; ATTEND Family Medicine

== ENCOUNTER 2021-01-04 11:54 | Inpatient (IN) ==
[2021-01-04] MEDS ORDERED: Isovue-370 500 ML BOTTLE IVP ONE (12:06)
[2021-01-04 12:49] LABS: Basophils % 0.4 %; Eosinophils % 0.4 %; Hematocrit 28.2 % (35.3-44.9); Hemoglobin 8.9 g/dL (11.5-15.4); Immature Granulocytes % 0.4 % (0-4); Lymphocytes # 0.5 K/mcL (0.6-4.6); Lymphocytes % 19.4 %; Mean Corpuscular HGB Conc 31.6 g/dL (31.6-35.5); Mean Corpuscular Hemoglobin 32.8 pg (28.0-33.3); Mean Corpuscular Volume 104.1 fL (83.0-100.0); Mean Platelet Volume 9.9 fL (9.4-12.4); Monocytes # 0.2 K/mcL (0.0-1.3); Monocytes % 9.9 %; Neutrophils # 1.6 K/mcL (1.6-8.9); Platelet Count 121 K/mcL (140-400); Red Blood Count 2.71 M/mcL (3.82-4.97); Red Cell Distribution Width 18.7 % (11.5-14.5); Segmented Neutrophils % 69.5 %; White Blood Count 2.3 K/mcL (4.3-11.1)
[2021-01-04 12:56] LABS: INR 1.1; Prothrombin Time 12.2 Seconds (9.4-12.1)
[2021-01-04 12:59] LABS: Activated Partial Thrombo Time 30.3 Seconds (26.0-36.0)
[2021-01-04 13:30] LABS: Influenza A PCR Negative (Negative); Influenza B PCR Negative (Negative); Resp. Syncytial Virus PCR Negative (Negative)
[2021-01-04 13:33] LABS: Alanine Aminotransferase 12 Units/L (7-52); Albumin 3.9 g/dL (3.5-5.7); Albumin/Globulin Ratio 1.2 (1.1-2.2); Alkaline Phosphatase 63 Units/L (34-104); Aspartate Amino Transferase 15 Units/L (13-39); Bilirubin,Direct 0.1 mg/dL (0.0-0.2); Bilirubin,Indirect 0.3 mg/dL (0.0-1.0); Bilirubin,Total 0.4 mg/dL (0.3-1.0); Blood Urea Nitrogen > 130 mg/dL (8-23); Calcium 9.1 mg/dL (8.6-10.3); Carbon Dioxide 18 mEq/L (23-29); Chloride 103 mEq/L (98-107); Globulin 3.2 g/dL (2.4-3.5); Glucose 87 mg/dL (70-105); Lipase 50 Units/L (11-82); Potassium 5.5 mEq/L (3.5-5.1); Sodium 138 mEq/L (136-145); Total Protein 7.1 g/dL (6.4-8.9); Troponin I 0.03 ng/mL (< 0.04); eGFR For African Americans 8 (> 60); eGFR For Non-African Americans 7 (> 60)
[2021-01-04 14:26] LABS: SARS-CoV-2 by PCR (In House) Negative (Negative)
[2021-01-04] MEDS ORDERED: 0.9 % Sodium Chloride 1,000 ML IV ONE (14:43)
[2021-01-04 16:46] LABS: Amorphous Sediment,Urine Few per hpf (None-Few); Bacteria,Urine Moderate per hpf (None-Few); Bilirubin,Urine Negative (Negative); Blood,Urine Negative (Negative); Calcium Oxalate Crystals,Urine Present per hpf; Clarity,Urine Turbid (Clear); Color,Urine Yellow (Yellow); Glucose,Urine (UA) Normal (Normal); Hyaline Casts,Urine Many per lpf (None Seen); Ketones,Urine Negative (Negative); Leukocyte Esterase,Urine Moderate (Negative); Mucus,Urine Few per lpf (None-Few); Nitrite,Urine Negative (Negative); Protein,Urine Trace mg/dL (Neg-Trace); RBC,Urine 0-3 per hpf (0-3); Specific Gravity,Urine 1.014 (1.010-1.025); Squamous Epithelial Cell,Urine Few per hpf (None-Few); Urobilinogen,Urine Normal (Normal)
[2021-01-04] MEDS ORDERED: cefTRIAXone 1,000 MG in Water for inj. (sterile) 10 ML IVP ONE (18:17)
[2021-01-04] MEDS ORDERED: Pantoprazole 40 MG VIAL IVP ONE (18:29)
[2021-01-04] MEDS ORDERED: Ondansetron 4 MG/2 ML VIAL IVP PRN (20:16)
[2021-01-04] MEDS ORDERED: Naloxone 0.4 MG/ML INJ IVP PRN (20:16)
[2021-01-04] MEDS ORDERED: *HR* Dextrose 50 % in Water (Syg) 50 ML SYRINGE IVP PRN (20:18)
[2021-01-04] MEDS ORDERED: D5% in Water 1,000 ML IVC PRN (20:18)
[2021-01-04] MEDS ORDERED: Dextrose Gel 15 GM/37.5 ML TUBE PO PRN ×2 (20:18)
[2021-01-04] MEDS ORDERED: 0.9 % Sodium Chloride 1,000 ML IVC SCH (22:00)
[2021-01-04] MEDS ORDERED: Sodium Bicarbonate 50 MEQ/50 ML VIAL IVP ONE (22:15)
[2021-01-04] MEDS: 0.9 % Sodium Chloride 1,000 ML IVC SCH (22:55)
[2021-01-05 02:06] LABS: Basophils % 0.4 %; Eosinophils % 0.4 %; Hematocrit 23.8 % (35.3-44.9); Hemoglobin 7.3 g/dL (11.5-15.4); Immature Granulocytes % 0.4 % (0-4); Lymphocytes # 0.5 K/mcL (0.6-4.6); Lymphocytes % 23.5 %; Mean Corpuscular HGB Conc 30.7 g/dL (31.6-35.5); Mean Corpuscular Hemoglobin 31.9 pg (28.0-33.3); Mean Corpuscular Volume 103.9 fL (83.0-100.0); Mean Platelet Volume 9.9 fL (9.4-12.4); Monocytes # 0.4 K/mcL (0.0-1.3); Monocytes % 15.5 %; Neutrophils # 1.4 K/mcL (1.6-8.9); Platelet Count 101 K/mcL (140-400); Red Blood Count 2.29 M/mcL (3.82-4.97); Red Cell Distribution Width 18.7 % (11.5-14.5); Segmented Neutrophils % 59.8 %; White Blood Count 2.3 K/mcL (4.3-11.1)
[2021-01-05 02:27] LABS: Sodium, Urine 29.7 mEq/L
[2021-01-05 02:47] LABS: Iron 35 mcg/dL (50-170)
[2021-01-05 02:49] LABS: Alanine Aminotransferase 8 Units/L (7-52); Albumin 3.2 g/dL (3.5-5.7); Albumin/Globulin Ratio 1.1 (1.1-2.2); Alkaline Phosphatase 52 Units/L (34-104); Aspartate Amino Transferase 13 Units/L (13-39); Bilirubin,Total 0.3 mg/dL (0.3-1.0); Blood Urea Nitrogen > 130 mg/dL (8-23); Calcium 7.8 mg/dL (8.6-10.3); Carbon Dioxide 12 mEq/L (23-29); Chloride 109 mEq/L (98-107); Globulin 2.9 g/dL (2.4-3.5); Glucose 69 mg/dL (70-105); Magnesium 2.5 mg/dL (1.6-2.6); Phosphorous 7.6 mg/dL (2.7-4.5); Potassium 5.4 mEq/L (3.5-5.1); Sodium 141 mEq/L (136-145); Total Protein 6.1 g/dL (6.4-8.9); eGFR For African Americans 9 (> 60); eGFR For Non-African Americans 7 (> 60)
[2021-01-05 03:04] LABS: Ferritin 407 ng/mL (10-120)
[2021-01-05 03:21] LABS: % Iron Saturation 15 % (15-50); Transferrin 166 mg/dL (203-362)
[2021-01-05] MEDS: cefTRIAXone 1,000 MG in Water for inj. (sterile) 10 ML IVP SCH (08:22)
[2021-01-05] MEDS: 0.9 % Sodium Chloride 1,000 ML IVC SCH ×2 (08:23→22:23)
[2021-01-05 08:31] LABS: Hematocrit 25.9 % (35.3-44.9); Hemoglobin 8.1 g/dL (11.5-15.4)
[2021-01-05 16:31] LABS: Blood Urea Nitrogen > 130 mg/dL (8-23); Calcium 7.8 mg/dL (8.6-10.3); Carbon Dioxide 15 mEq/L (23-29); Chloride 110 mEq/L (98-107); Glucose 107 mg/dL (70-105); Sodium 139 mEq/L (136-145); eGFR For African Americans 10 (> 60); eGFR For Non-African Americans 8 (> 60)
[2021-01-05] MEDS: Sodium Bicarbonate 75 MEQ in 0.45 % Sodium Chloride 1,000 ML IVC SCH (17:04)
[2021-01-06 01:39] LABS: Basophils % 0.5 %; Eosinophils % 1.6 %; Hematocrit 23.5 % (35.3-44.9); Hemoglobin 7.5 g/dL (11.5-15.4); Immature Granulocytes % 0.5 % (0-4); Lymphocytes # 0.4 K/mcL (0.6-4.6); Lymphocytes % 22.5 %; Mean Corpuscular HGB Conc 31.9 g/dL (31.6-35.5); Mean Corpuscular Hemoglobin 32.5 pg (28.0-33.3); Mean Corpuscular Volume 101.7 fL (83.0-100.0); Mean Platelet Volume 9.9 fL (9.4-12.4); Monocytes # 0.3 K/mcL (0.0-1.3); Monocytes % 14.8 %; Neutrophils # 1.1 K/mcL (1.6-8.9); Red Blood Count 2.31 M/mcL (3.82-4.97); Red Cell Distribution Width 18.8 % (11.5-14.5); Segmented Neutrophils % 60.1 %; White Blood Count 1.8 K/mcL (4.3-11.1)
[2021-01-06 01:40] LABS: Platelet Count 94 K/mcL (140-400)
[2021-01-06 02:08] LABS: Calcium 7.7 mg/dL (8.6-10.3); Potassium 4.5 mEq/L (3.5-5.1)
[2021-01-06 02:29] LABS: Folate > 22.3 ng/mL (3.0-16.0); Vitamin B12 839 pg/mL (250-1100)
[2021-01-06] MEDS: 0.9 % Sodium Chloride 1,000 ML IVC SCH ×2 (03:50→14:31)
[2021-01-06] MEDS: Sodium Bicarbonate 75 MEQ in 0.45 % Sodium Chloride 1,000 ML IVC SCH (03:50)
[2021-01-06] MEDS: cefTRIAXone 1,000 MG in Water for inj. (sterile) 10 ML IVP SCH (08:54)
[2021-01-06 13:41] LABS: Phosphorous 5.6 mg/dL (2.7-4.5)
[2021-01-06] MEDS: allopurinoL 100 MG TABLET PO SCH (15:32)
[2021-01-06] MEDS: *HR* Heparin 5,000 UNIT/ML VIAL SQ SCH (16:44)
[2021-01-07] MEDS: 0.9 % Sodium Chloride 1,000 ML IVC SCH ×2 (01:00→09:54)
[2021-01-07 01:32] LABS: Basophils % 0.5 %; Eosinophils % 1.6 %; Hematocrit 26.3 % (35.3-44.9); Hemoglobin 8.2 g/dL (11.5-15.4); Lymphocytes # 0.4 K/mcL (0.6-4.6); Lymphocytes % 19.4 %; Mean Corpuscular HGB Conc 31.2 g/dL (31.6-35.5); Mean Corpuscular Hemoglobin 31.7 pg (28.0-33.3); Mean Corpuscular Volume 101.5 fL (83.0-100.0); Mean Platelet Volume 9.8 fL (9.4-12.4); Monocytes # 0.3 K/mcL (0.0-1.3); Monocytes % 15.1 %; Neutrophils # 1.2 K/mcL (1.6-8.9); Red Blood Count 2.59 M/mcL (3.82-4.97); Red Cell Distribution Width 18.6 % (11.5-14.5); Segmented Neutrophils % 63.4 %; White Blood Count 1.9 K/mcL (4.3-11.1)
[2021-01-07 01:34] LABS: Platelet Count 94 K/mcL (140-400)
[2021-01-07 01:38] LABS: Platelet Estimate Slight Decrease (Normal)
[2021-01-07 01:52] LABS: Calcium 7.8 mg/dL (8.6-10.3)
[2021-01-07] MEDS: *HR* Heparin 5,000 UNIT/ML VIAL SQ SCH (05:30)
[2021-01-07 07:53] VITALS: TEMP 98.2
[2021-01-07 07:57] VITALS: BP 138/62; PULSE 76; O2SAT 95
[2021-01-07] MEDS: allopurinoL 100 MG TABLET PO SCH (09:52)
[2021-01-07] MEDS: cefTRIAXone 1,000 MG in Water for inj. (sterile) 10 ML IVP SCH (09:53)
== END 2021-01-07 13:33 | disposition home or self-care (01) | DRG 682 ==
LOC: EMEROOARM 11:54 → 2ANU 11:54 → SUATTDRO 01-05 00:29
PROVIDERS: ADMIT Family Medicine; ATTEND Internal Medicine